=== PATIENT | male | born 1995 | race Caucasian/White ===

== ENCOUNTER 2020-12-28 22:10 | Emergency (ER) | payer MEDICAID ==
[~2020-12-28] VITALS: Ht 180.3 cm; Wt 78.0 kg
[2020-12-28] MEDS ORDERED: IBUPROFEN 600MG TABLET PO ONE (23:15)
[2020-12-28] MEDS ORDERED: IBUP-2028 MT (23:21)
[2020-12-29 02:07] VITALS: BP 110/61
== END 2020-12-29 02:08 | disposition home or self-care (01) ==
LOC: ER 22:10
DX: S00.03XA Contusion of scalp, initial encounter (principal); S00.81XA Abrasion of other part of head, initial encounter; M79.644 Pain in right finger(s); M25.521 Pain in right elbow; W18.39XA Other fall on same level, initial encounter; Y93.89 Activity, other specified; Y92.89 Other specified places as the place of occurrence of the external cause; Y99.8 Other external cause status
CPT/HCPCS: 73080; 73130; 99284